=== PATIENT | female | born 1955 | race Caucasian/White ===

== ENCOUNTER 2019-08-27 08:58 | Emergency (ER) | payer MEDICAID ==
[~2019-08-27] VITALS: Ht 154.9 cm; Wt 60.8 kg
[2019-08-27 09:05] VITALS: BP 134/73; Ht 154.9 cm; Wt 60.8 kg
== END 2019-08-27 09:47 | disposition home or self-care (01) ==
LOC: ED 08:58
DX: L02.11 Cutaneous abscess of neck (principal); I10 Essential (primary) hypertension; Z98.890 Other specified postprocedural states; Z88.0 Allergy status to penicillin